=== PATIENT | female | born 1990 | race Caucasian/White ===

== ENCOUNTER 2019-04-29 15:00 | Inpatient (IN) | payer OTHER ==
[~2019-04-29] VITALS: Ht 165.1 cm; Wt 169.0 kg
[~2019-04-29 15:00] MED LIST: PRENATAL CAPSU1 EACH
== END 2019-05-18 10:21 | disposition home or self-care (01) | DRG 807 ==
LOC: O/R 15:00 → OB/GYN 05-16 17:35 → LDR 05-16 17:35 → OB/GYN 05-16 21:30
PROVIDERS: ADMIT Obstetrics & Gynecology
PROC: 10E0XZZ Delivery of Products of Conception, External Approach (ICD-10-PCS; principal; 2019-05-16)
PROC: 4A1HXCZ Monitoring of Products of Conception, Cardiac Rate, External Approach (ICD-10-PCS; 2019-05-16)
DX: O80 Encounter for full-term uncomplicated delivery (principal); Z37.0 Single live birth; Z3A.39 39 weeks gestation of pregnancy